=== PATIENT | female | born 1985 | race Caucasian/White ===

== ENCOUNTER 2017-06-14 06:21 | Day surgery (SDC) | payer MEDICAID, SELFPAY ==
[2017-06-09 15:38] LABS: Hematocrit 30.2 % (37-47); Hemoglobin 8.9 g/dl (12.0-15.0); Mean Corp Hgb Conc 29.5 g/gl (32-36); Mean Corpuscular Volume 67.9 fL (81-99); Mean Platelet Vol. 8.4 fl (6.2-12.0); Platelet Count 358 K/mm3 (150-450); RBC Distribution Width CV 16.5 % (11.6-14.6); RBC Distribution Width SD 40.1 fl (35.1-43.9); Red Blood Count 4.45 M/mm3 (4.2-5.4); White Blood Count 3.5 K/mm3 (4.4-11.0)
[2017-06-09 15:39] LABS: Scan Indicated on CBC? Y/N YES- FLAGS NOTED
[2017-06-09 15:41] LABS: Partial Thromboplast Time 27.9 Seconds (24.1-36.2); Prothrombin Time (Protime)PT. 13.6 SECONDS (11.7-14.9)
[2017-06-09 15:50] LABS: AST(SGOT) 28 U/L (15-37); Alanine Aminotransfer ALT/SGPT 26 U/L (13-56); Albumin, Serum 3.8 g/dL (3.2-5.0); Alkaline Phosphatase 112 U/L (45-117); Bilirubin, Direct 0.16 mg/dL (0.00-0.30); Creatinine, Serum 0.64 mg/dL (0.55-1.02); EST Glomerular Filtration Rate 113 mL/min (>60); Est Glom Filt Rate - Afr Amer 137 mL/min (>60); Globulin 3.6 g/dL (2.2-4.2); Protein, Total 7.4 g/dL (6.4-8.2)
[2017-06-09 16:24] LABS: Differential Comment SCANNED
--- NOTE | 2017-06-13 20:33 | HP.PCM_ITS ---
History and Physical Date of Admission: 06/14/17 Surgical History and Physical Kristen Mcgee, a 32 year old female 3 0 1 0 3, presents for RAVH/ BSO on June 14, 2017 at 8:30. -- Severe Endometriosis and Pelvic Pain -- Pelvic pain which began 4-5 years ago. Kristen claims it started getting worse in the last 4-5 months since delivery of baby and has been present 4-5 years. It occurs almost every day. It is located in the lower pelvic. Kristen characterizes it to be to hip area, downward to thighs, and around to back. Kristen characterizes the quality cramping. Severity is severe; It is aggravated by bowel movements and intercourse. It is relieved by heating pad, tylenol. Additional comments are: biopsy proven endometriosis [place] [address] HANNON; pain was controlled with Depoprovera now becoming more severe; cannot take this any longer. MEDICATIONS HISTORY: Current medications prescribed by our practice are: 1. ferrous sulfate 324 mg (65 mg iron) tablet,delayed release, 1 tablet q 8 hrs as tolerated ALLERGIES: NKDA, [place] and Vomiting Infections - Chicken pox Illnesses - asthma Accidents - no injuries of consequence Hospitalizations - see surgery h/o endometriosis; Review of Systems: GENERAL - Denies fever, or chills SKIN - Denies skin changes EYES - Denies visual changes EARS - Denies difficulty hearing NOSE - Denies nasal congestion or bleeding MOUTH - Denies sore throat or difficulty swallowing NECK - Denies pain or swelling RESPIRATORY - Denies shortness of breath or wheezing CARDIOVASCULAR - Denies palpitations or chest pain GASTROINTESTINAL - Denies nausea, vomiting, diarrhea, constipation GENITOURINARY - Denies dysuria, frequency of urination, incontinence of urine MUSCULOSKELETAL - Denies joint or muscle pain NEUROLOGICAL - Denies localized numbness or weakness PSYCHIATRIC - Denies depression or anxiety ENDOCRINE - Denies heat or cold intolerance, weight loss or gain HEMATO-IMMUNOLOGIC - Denies excesive bleeding with cuts SOCIAL HISTORY: Alcohol Use - None Smoking - occasionally Diet - h/o gastric bypass Lifestyle - moderate stress lifestyle and single Exercise - minimal Seat Belt Use - always Employer - Unemployed Illicit Drug Use - None Sexual Activity - single sexual partner Residence - rents an apartment Spouse-Sig Other Name - Gene Spouse-Sig Other Occupation - [employer] Children Name(s) - Wagner Lassiter Sophia '17 Control - had Tubal FAMILY HISTORY: Maternal Grandfather: DM I. MENSTRUAL HISTORY: LMP Known?- Irregular cyclesAmount/Duration - 7 days, Regularity - Irregular, Frequency - variable days, LMP - 06/02/17, Age Onset Menarche - 12 PAST PREGNANCIES: Total Pregnancies - 4; Full Term Pregnancies - 3; Premature - 0; Abortions, Induced - 0; Abortions, Spontaneous - 1; Ectopics - 0; Multiple Births - 0; Living Children - 3 SURGICAL HISTORY: 1. 04/16/2005 ; [place] - 2. 05/17/2009 ; Eduardo Wells M.D. - 3. 11/15/2013 Gastric Bypass ; - 4. 01/18/2017 L/S cholecystectomy ; Andres Anderson MD. Carlos Ballard MD - 5. 09/26/2016 and Tubal ; Tonya Monzon MD - 6. 12/28/2016 hysteroscopy, D and C ; Eduardo Wells M.D. - PHYSICAL EXAM BP- 128/78 Sitting, Left arm, regular cuff Weight- 213.84337 lbs Height- 70 inch BMI:30.74 CONSTITUTIONAL - NAD, well nourished, and well developed SKIN - No rash, lesions, or ulcers HEENT - Normocephalic, PERRLA, EOMI NECK - No nodes, no nuchal rigidity and thyroid normal size and texture LYMPH NODES - Palpation of lymph nodes in neck and groins within normal limits LUNGS - CTA x2 without wheezes, crackles or rales CARDIAC - Regular rate and rhythm without rubs, murmurs, or gallops ABDOMEN - Without hepatosplenomegaly, distention, masses, rebound, or guarding; normal bowel sounds; no hernias EXTREMITIES - No edema or calf tenderness NEUROLOGICAL - Cranial nerves II-XII grossly intact PSYCHIATRIC - A and O to time, place, person, mood and affect External Genital Vagina - non-tender without lesions Urethra/Urethral Meatus - non-tender Bladder - non-tender Vagina - vaginal wahl are pink and moist without loss of rugae and no evidence of atropy Cervix - positive CMT Uterus - multiparous size 6 cm & wt 75-125 g and severe uterine and adnexal tenderness Adnexa - no masses ASSESSMENT/PLAN: 1. Endometriosis Nos, Pelvic Pain and Unspec Pain is severe and worsening. Discussed options including Depoprovera versus proceeding with hysterectomy. Pt had tubal and declines depoprovera. Wants to proceed with hysterectomy. Plan RAVH/BSO. Discussed RBAs including possibility of not helping pain. Also discussed that this will make her menopausal requiring HRT which could exacerbate the endometriosis. All questions answered.
[2017-06-14] VITALS (13 sets, daily range): BP systolic 98–129; BP diastolic 36–80; PULSE 69–100; RESP 12–18; TEMP 36.2–37.2; O2SAT 93–100; BMI 31.6; BMI 31.1
--- NOTE | 2017-06-14 08:30 | HYST_PTH ---
PATIENT: ALEKSANDER CEBALLOS LOC: [facility] [place] U#:[id number] AGE/SX: 32/F ROOM: RE06/14/[address]: Dr. Eduardo Wells MD : 1985 BED: DIS: 06/15/2017 SPEC #: [id number] RECD: 06/14/17 13:07 STATUS: DANA BEATRIZ #: [id number] JENNIFER: 06/14/17 08:[address]: Eduardo Wells DEPT: SURGICAL PATHOLOGY RECD BY: Constantine Gómez ENTERED: 06/14/17 14:02 SP TYPE: HYSTERECT OTHR DR: Dr. Ronaldo Song MD Tissues: Uterus, NOS Procedures: Surgery Specimen Level V HEADER OPERATION: Robotic assisted vaginal hysterectomy, bilateral salpingo-oophorectomy PRE-OP DIAGNOSIS: Endometriosis and pelvic pain TISSUE SUBMITTED: Uterus, cervix, bilateral fallopian tubes and bilateral ovaries MICROSCOPIC DIAGNOSIS Uterus, hysterectomy: Cervix ? mild chronic inflammation and nabothian cysts. Endometrium ? transition endometrium. Myometrium ? no significant pathologic change. Right fallopian tube ? benign paratubal cyst. Right ovary ? follicular and corpus luteal cysts. Left fallopian tube ? benign paratubal cyst. Left ovary ? follicular and corpus luteal cysts. AM:lynn 06/15/17 MICROSCOPIC DESCRIPTION Slides are reviewed. GROSS DESCRIPTION Received in fixative is one container labeled with the patient's name and designated uterus, cervix, bilateral fallopian tubes and bilateral ovaries. The specimen consists of a hysterectomy specimen consisting of uterus with cervix and attached bilateral fallopian tubes ovaries and detached fimbrial end of the left fallopian tube. The uterus with cervix weighs 100 gm and measures 9.5 x 7 x 4.5 cm. The serosal surface is chauhan, glistening. The ectocervical mucosa is unremarkable. The external os is slit-like in contour. The endocervical canal measures 3.5 cm in length and the endocervical mucosa is chauhan, glistening and unremarkable. Sections of the cervix reveal a few cysts filled with mucoid material. The triangular endometrial cavity measures 4.5 cm in length and 3 cm in width. The endometrium is congested without any mass lesion and measures 0.1 cm in thickness. Sections of the uterine wall do not reveal any mass lesion and it measures up to 2.5 cm in thickness. The right fallopian tube measures 6 cm in length and 0.5 cm in diameter. The fimbrial end is identified. Focal tubo-ovarian adhesions are noted. A paratubal cyst is also noted measuring 1 cm in diameter. The soft to cystic right ovary measures 6 x 3 x 3 cm. Sections reveal multiple cysts filled with clear to hemorrhagic fluid. The largest cyst measures 1.3 cm in greatest dimension. A corpus luteum is also noted. The attached proximal portion of the left fallopian tube measures 2 cm in length and 0.5 cm in diameter. The detached fimbrial end measures 2 x 1.5 x 0.5 cm. A paratubal cyst is also noted measuring 1 cm in greatest dimension. The soft to cystic left ovary measures 5 x 3 x 2.5 cm. Sections reveal multiple cysts filled with clear to hemorrhagic fluid. The largest cyst measures 2 cm in greatest dimension. A corpus luteum is also noted. [employer] sections are submitted in 12 cassettes as follows: 1 - anterior cervix, 2 - posterior cervix, 3 & 4 - anterior uterine wall, 5 & 6 - posterior uterine wall, 7 ? right fallopian tube and paratubal cyst, 8?&?9 ? right ovary, 10 ? left fallopian tube and paratubal cyst, 11 & 12 ? left ovary. / GABRIELLA:lynn 06/14/17 TC:5 CPT: 61112
--- NOTE | 2017-06-14 09:06 | PCM.OP.BLANK ---
Operative Report Date of Procedure: 06/14/17 Surgeon: Eduardo Wells MD, FACOG Director Compensation: CHIQUIS Lang Anesthesia: Alexia Lomax CRNA Type of anesthesia: General Endotracheal Procedure: Robotic Assisted Vaginal Hysterectomy and Bilateral Salpingoophrectomy, Lysis of Adhesions Pre-Op: Endometriosis and severe pelvic pain Post-Op: Endometriosis and severe pelvic pain and adhesions Findings: 8 cm uterus with normal appearing tubes and ovaries bilaterally; dense adhesions of left anterior uterus to sidewall, adhesions of omentum to anterior abdominal wall, adhesions of bladder to anterior abdominal wall and uterus. Indication: This is a 32 year old patient G 3 p 3 who has been having problems with pelvic pain and severe endometriosis. Conservative measures have not been helpful. The patient had 3 prior C-sections, gastric stapling, and a prior cholecystectomy. The patient has been counseled regarding the risks, benefits and alternatives of this procedure including the possibility of bleeding, infection, and injury to surrounding structures such as bowel bladder and all questions were answered. She understands with a BSO she will need to be on HRT for an indefinite period of time. Procedure: Pt taken to the operating room where after induction of general anesthesia the patient was prepped and draped in the usual sterile fashion and placed on a non-slip Huggy-u-vac device. Trendendelenburg test was satisfactory. Bladder was drained of urine with a Crum catheter which was left in place. Anterior cervix grasped and cervix was dilated to about 3-4 mm. Uterus sounded to 10 cms. 0-Vicryl suture was placed at the 3:00 and 9:00 position of the cervix. A medium v-care device was then placed in the uterus to allow uterine manipulation and attention was turned to the laparoscopic portion of the procedure. Ropivocaine 0.5% was injected approximately 2-3 cm superior to the umbilicus and a 5 mm blade less Ethicon Visiport was introduced and adhesions were encountered. However, CO2 insufflation was successful. A 5 mm Visiport was placed approximately 2 cm inferior and 11 cm left lateral to this port again using the Visiport. This allowed identifying all the adhesions present in the abdomen and safely inserting the 8 mm robotic camera port. 8 mm robotic side ports were introduced under direct visualization approximately 11-13 cm lateral and 2 cm inferior to the umbilical port. A 5 mm left upper quadrant port was introduced and airseal insufflation with CO2 was started. The above findings were noted. Robot was docked without difficulty and attention turned to the robotic portion of the procedure. Approximately 30 cc of Ropivicaine was used. Adhesions were taken down with monopolar and bipolar cautery. Bilateral infundibulocal ligaments/mesosalpinx were ligated with 35 baron bipolar coagulation to the level of the round ligament. The posterior aspect of the cervix was identified and then opened for about 1 cm using 25 watt monopolar cautery identifying the V-care device which had been placed vaginally. Bladder flap was opened and divided to the level of the round ligaments using monopolar cautery. Progressive bites were then ligated on each side of the cervix with 35 baron bipolar cautery to the uterine arteries. The anterior vaginal mucosa was then entered and cervix circumscribed with monopolar cautery. Uterus and attached ovaries and tubes were then removed through the vagina. Vaginal cuff was closed first with 0-Vicryl Darius stitches placed at each angle followed by closure of the mid-cuff with 0-Monocryl V-lock suture in two layers. Pelvis was copiously irrigated with saline and the right and left ureters martínez noted to peristalse. Robot was undocked and trocars were removed with as much gas as possible. Incisions were closed with 4-0 Monocryl subcuticular sutures and incisions covered with steri-strips and opsite dressing. The patient tolerated the procedure well and was taken to the recovery room in satisfactory condition. Sponge, instruments and needle counts were all correct. There were no apparent complications of the surgery. Cefotan 2 gms IV was given prior to the procedure. Estimated Blood Loss: 100 cc Specimen to Pathology: Uterus and bilateral tubes and ovaries
--- NOTE | 2017-06-14 09:09 | PCM.DC.VHY ---
Discharge Diet: No Restrictions Discharge Activity: Return to Normal Activity, May Not Drive - while taking narcotic pain medications., May Shower May resume sexual activity in: 6-8 weeks Call your doctor if your incision/area has: Continuous Slow Oozing, Sudden Increased Bleeding, Increased Pain/ Swelling, Increased Redness, Foul Smelling Discharge Call your doctor if you observe: Fever of 101 or Higher, Inability to urinate, Inability to have a bowel movement, Using more than one pad per hour Allergies/Adverse Reactions: Allergies aspirin Adverse Reaction (Verified 06/08/17 15:32) Nausea/Vom/Diarrhea NSAIDS (Non-Steroidal Anti-Inflamma Adverse Reaction (Verified 06/08/17 15:32) Other Medications to take at Discharge Cyanocobalamin (Vitamin B-12) [Vitamin B12] 2,500 mcg PO DAILY 12/25/16 Ferrous Sulfate [Iron] 325 mg PO DAILY 12/25/16 Docusate Sodium [Colace] 100 mg PO BID PRN PRN #60 cap 06/14/17 Oxycodone [Oxyir] 5 mg PO Q6H PRN PRN 7 Days #20 tab 06/14/17 The following prescriptions were given: Oxycodone [Oxyir] 5 mg PO Q6H PRN PRN 7 Days #20 tab PRN Reason: Severe Pain (6-01/12) Docusate Sodium [Colace] 100 mg PO BID PRN PRN #60 cap PRN Reason: Constipation Primary Care Physician: Ronaldo Song [Primary Care Provider] - Please Follow Up With: Eduardo Wells MD When: 2-3 weeks
[2017-06-14] MEDS: Ropivacaine 0.5% 30 ML Vial (09:30)
[2017-06-14] MEDS: Dextrose 5%-Lactated Ringers 1,000 ML 150 ML IV ×2 (14:25→21:34)
[2017-06-14] MEDS: Acetaminophen 500 MG Tablet 1000 MG PO ×2 (16:14→21:34)
[2017-06-14] MEDS: oxyCODONE 5 MG Tablet PO ×2 (16:14→21:35)
[2017-06-14] MEDS: Estrogens,Conj. 1.25 MG Tablet PO (16:15)
[2017-06-14] MEDS: Ketorolac 30 MG/ML Syringe IV ×2 (18:30→23:42)
[2017-06-14] MEDS: Enoxaparin 40 MG/0.4 ML Syringe SC (18:30)
[2017-06-14] MEDS: Famotidine 20 MG Tablet 10 MG PO (21:34)
[2017-06-14] MEDS: 0.9% NaCl Peripheral Flush Adult/Peds IV (23:43)
[2017-06-15] MEDS: oxyCODONE 5 MG Tablet PO ×2 (02:27→07:32)
[2017-06-15 02:29] VITALS: BP 112/62; PULSE 87; RESP 18; TEMP 36.8; O2SAT 99
[2017-06-15 05:26] LABS: Hemoglobin 7.1 g/dl (12.0-15.0); Mean Corp Hgb Conc 28.4 g/gl (32-36); Mean Corpuscular Hgb 19.9 pg (27.0-32.0); Mean Corpuscular Volume 70.2 fL (81-99); Mean Platelet Vol. 8.4 fl (6.2-12.0); Platelet Count 275 K/mm3 (150-450); RBC Distribution Width CV 16.5 % (11.6-14.6); Red Blood Count 3.56 M/mm3 (4.2-5.4); Scan Indicated on CBC? Y/N YES- FLAGS NOTED; White Blood Count 5.8 K/mm3 (4.4-11.0)
[2017-06-15 05:38] LABS: Creatinine, Serum 0.65 mg/dL (0.55-1.02); EST Glomerular Filtration Rate 112 mL/min (>60); Est Glom Filt Rate - Afr Amer 136 mL/min (>60); Estimated Creatinine Clearance 129.85 ml/min
[2017-06-15] MEDS: Ketorolac 30 MG/ML Syringe IV (05:44)
[2017-06-15] MEDS: Dextrose 5%-Lactated Ringers 1,000 ML 150 ML IV (05:44)
[2017-06-15] MEDS: Acetaminophen 500 MG Tablet 1000 MG PO (05:44)
[2017-06-15] MEDS: 0.9% NaCl Peripheral Flush Adult/Peds IV (05:47)
[2017-06-15 06:35] LABS: Differential Comment SCAN
[2017-06-15 07:46] VITALS: BP 114/67; PULSE 79; RESP 14; TEMP 36.7; O2SAT 100
--- NOTE | 2017-06-15 08:35 | PN.OBGYN_ITS ---
Subjective: Patient without complaints doing well. Minimal pain. Positive flatus. Tolerating diet well. Minimal vaginal bleeding. - Physical Exam Vital Signs AF, VSS Temp Pulse Resp BP Pulse Ox 98.1 F 79 14 114/67 100 06/15/17 07:46 06/15/17 07:46 06/15/17 07:46 06/15/17 07:46 06/15/17 07:46 Oxygen Delivery Method Room Air Weight: 210 lb 15.718 oz Body Mass Index (BMI) 31.1 Intake and Output for Last 24 Hours 06/13/17 06/14/17 06/15/17 23:59 23:59 23:59 Intake Total 3866 / 3866 1445 / 1445 Output Total 1515 / 1515 850 / 850 Balance 2351 / 2351 595 / 595 Laboratory Tests Past 24 Hrs 06/15/17 06/15/17 04:55 04:55 WBC 5.8 RBC 3.56 L Hgb 7.1 L Hct 25.0 L MCV 70.2 L MCH 19.9 L MCHC 28.4 L RDW 16.5 H RDW Differential 41.0 Plt Count 275 MPV 8.4 Differential Comment SCAN Creatinine 0.65 Estim Creat Clear Calc 129.85 Est GFR (MDRD) Af Amer 136 Est GFR (MDRD) Non-Af 112 Wounds are clean, dry, intact. Hemoglobin okay and creatinine okay. Assessment/Plan Doing well. Expected postoperative anemia as patient was anemic prior to surgery. Symptomatic. Will release to home with chain instructions. Follow- up in 2 weeks and 6 weeks. Prescriptions given for oxycodone, Colace, estradiol. Patient to continue iron supplementation at home as prior to surgery.
[2017-06-15 08:46] VITALS: O2SAT 99
--- NOTE | 2017-06-15 09:22 | NURSING ---
pt refusing continuous spo2.
[2017-06-15] MEDS: Famotidine 20 MG Tablet 10 MG PO (09:38)
[2017-06-15] MEDS: Estrogens,Conj. 1.25 MG Tablet PO (09:40)
== END 2017-06-15 10:50 | disposition home or self-care (01) ==
LOC: SDC 06:22 → AC 06:22 → MS2 13:32
PROVIDERS: Visit Provider Obstetrics & Gynecology
PROC: 0UT94ZZ Resection of Uterus, Percutaneous Endoscopic Approach (ICD-10-PCS; CPT 49329; principal; 2017-06-14 08:10)
DX: N83.12 Corpus luteum cyst of left ovary (principal); N83.8 Other noninflammatory disorders of ovary, fallopian tube and broad ligament; N80.9 Endometriosis, unspecified; R10.2 Pelvic and perineal pain; N88.8 Other specified noninflammatory disorders of cervix uteri; D64.9 Anemia, unspecified; K66.0 Peritoneal adhesions (postprocedural) (postinfection); J45.909 Unspecified asthma, uncomplicated; G47.30 Sleep apnea, unspecified; Z90.49 Acquired absence of other specified parts of digestive tract; F17.200 Nicotine dependence, unspecified, uncomplicated; Z98.84 Bariatric surgery status
CPT/HCPCS: 00790; 49329; 58552; 36415; 80076; 82565; 85027; 85610; 85730; 86850; 86900; 88307; J3010; J7120; A4216; J2405; J3490

== ENCOUNTER 2020-10-30 16:56 | Emergency (ER) | payer MEDICAID, SELFPAY ==
[2020-10-30 16:57] VITALS: BP 130/92; PULSE 105; RESP 18; TEMP 36.2; O2SAT 99; BMI 30.8
--- NOTE | 2020-10-30 17:00 | RAD_ITS ---
STUDY: X-RAY - RIGHT HAND REASON FOR EXAM: Female, 35 years old. INJURY -- IN WAITING ROOM TECHNIQUE: 3 view(s) of the hand. COMPARISON: None. FINDINGS: Mild to moderate soft tissue swelling is present over the dorsum of the hand. No visualized acute fracture. Normal radiocarpal articulation. Normal distal radioulnar joint. Normal visualized carpal bones. Normal carpal articulations Normal carpometacarpal articulation of the thumb. Normal second through fifth carpometacarpal joints. Normal metacarpi. Normal metacarpophalangeal joint of the thumb. Normal interphalangeal joint of the thumb. Normal proximal and distal phalanges of the thumb. Normal metacarpophalangeal joints of the second through fifth fingers. Normal proximal and distal interphalangeal joints of the second through fifth fingers. Normal phalanges of the second through fifth fingers. RAD/Hand Min 3 Views IMPRESSION: 1. Mild to moderate soft tissue swelling is present over the dorsum of the hand. No visualized acute fracture. Electronically Signed: Javon Lynch MD at 17:43 EDT , Service support ,
--- NOTE | 2020-10-30 17:50 | EX.ED.UPPERE ---
HPI History of Present Illness Chief Complaint: Upper Extremity Injury Informant: patient Narrative Narrative: 35-year-old female states that 2 days ago her son close the chau of the car came and coming down on the right hand. She notes swelling and bruising of the dorsum of the right hand down onto the fingers. She notes that the fingers feel tingly. She is able to range the fingers does not think that there is a tendon injury. PFSH PFSH Home Medications cyanocobalamin (vitamin B-12) 2,500 mcg PO DAILY 12/25/16 [History Last Taken Unknown] ferrous sulfate [Iron (ferrous sulfate)] 325 mg PO DAILY 12/25/16 [History Last Taken Unknown] docusate sodium 100 mg PO BID PRN PRN #60 cap 06/14/17 [Rx Last Taken Unknown] oxycodone 5 mg PO Q6H PRN PRN 7 Days #20 tab 06/14/17 [Rx Last Taken Unknown] estradiol 2 mg PO DAILY #100 tab 06/15/17 [Rx Last Taken Unknown] Allergy/AdvReac Type Severity Reaction Status Date / Time aspirin AdvReac Nausea/Vom/ Verified 10/30/20 16:58 Diarrhea NSAIDS (Non-Steroidal AdvReac Other Verified 10/30/20 16:58 Anti-Inflamma Social History (Updated 10/30/20 @ 17:[address] Ari Snowden, DO) Smoking Status: Light Smoker (<10/day) substance use type: does not use ROS ROS ED Constitutional Constitutional ED: Denies chills or weight loss Eyes Eyes: Denies change in vision or diplopia ENT ENT ED: Denies ear pain, rhinorrhea or sore throat Cardiovascular Cardiovascular: Denies chest pain, orthopnea, palpitations or racing heartbeat Respiratory/Chest Respiratory/Chest: Denies cough, dyspnea or orthopnea Gastrointestinal Gastrointestinal: Denies abdominal pain, diarrhea, nausea or vomiting Genitourinary Genitourinary ED: Denies dysuria, hematuria or urinary frequency Musculoskeletal Musculoskeletal: Reports other Details: Right hand pain ; Denies arthralgias or myalgias Integumentary Reports other Details: See history of present illness ; Denies abscess or rash Neurologic Neurologic: Denies headache(s) or weakness Psychiatric Psychiatric: Denies anxiety, depression, suicidal ideation or suicidal thoughts Endocrine Endocrinology: Denies polydipsia, polyphagia or polyuria Allergic/Immunologic Allergic/Immunologic ED: Denies mouth swelling, tongue swelling or urticaria EXAM Physical Exam Const Vital Signs: 10/30/20 16:57 Temperature 97.1 F L Temperature Source Temporal Pulse Rate 105 H Respiratory Rate 18 Blood Pressure 130/92 H Blood Pressure Mean 104 Pulse Ox 99 Oxygen Delivery Method Room Air Positive well nourished and well developed General Appearance ED: well developed HEENT Reports normocephalic, head/scalp atraumatic and moist mucous membranes Eyes PERRL and EOMs intact bilaterally Neck no lymphadenopathy, supple and no JVD Resp normal respiratory effort and clear to auscultation bilaterally Cardio regular rate, regular rhythm and no murmurs GI normal to inspection, nondistended, normoactive bowel sounds and non-tender Palpation: soft Back/Spine no CVA tenderness and normal ROM Extremity Extremity Narrative: There is some mild swelling and purple ecchymosis over the dorsum of the right hand extending down onto the second through fifth digits. No subungual hematomas. No obvious tendon injuries. Neurovascularly intact. General Extremety ED: Negative for edema General Extremity: Negative for edema Neuro oriented x3 and CN's II-XII intact bilaterally Sensorium / Orientation: alert Motor Exam: strength 5/5 throughout Psych mental status grossly normal Mood & Affect: Negative for depressed or tearful Skin no rashes or lesions noted and no wounds MDM MDM MDM Narrative Medical decision making narrative: My interpretation of the plain films of the right hand is no acute fracture. Mild soft tissue swelling. This point we will recommend conservative treatment. Follow-up 10 to 14 days if not improved Radiography Diagnostic Testing: Radiology Impression Hand X-Ray 10/30/20 17:00 IMPRESSION: 1. Mild to moderate soft tissue swelling is present over the dorsum of the hand. No visualized acute fracture. Electronically Signed: Javon Lynch MD at 17:43 EDT , Service support , Discharge Plan Triage Chief Complaint: Upper Extremity Injury ED Provider: Ari Snowden Dx/Rx/DC Orders Clinical Impression: Crushing injury of right hand, Traumatic hematoma of right hand Instructions: ED Crush Injury, Hand Prescriptions: No Action cyanocobalamin (vitamin B-12) 2,500 MCG tablet 2,500 mcg PO DAILY RF: 0 ferrous sulfate [Iron (ferrous sulfate)] 325 MG tablet 325 mg PO DAILY RF: 0 oxycodone 5 MG tablet 5 mg PO Q6H PRN PRN (Reason: Severe Pain (-01/12)) 7 Days Qty: 20 RF: 0 docusate sodium 100 MG capsule 100 mg PO BID PRN PRN (Reason: Constipation) Qty: 60 RF: 1 estradiol 2 MG tablet 2 mg PO DAILY Qty: 100 RF: 4 Primary Care Provider: Ronaldo Song Referrals: Ronaldo Song MD [Primary Care Provider] - As Needed Disposition Disposition: Home, Self Care
== END 2020-10-30 18:00 | disposition home or self-care (01) ==
LOC: ED 17:59
PROVIDERS: Emergency Provider Emergency Medicine
DX: S67.21XA Crushing injury of right hand, initial encounter (principal); S60.221A Contusion of right hand, initial encounter; W23.0XXA Caught, crushed, jammed, or pinched between moving objects, initial encounter; Y93.9 Activity, unspecified; Y92.9 Unspecified place or not applicable; F17.200 Nicotine dependence, unspecified, uncomplicated
CPT/HCPCS: 73130; 99281; 99282